=== PATIENT | female | born 1955 | race African-American/Black ===

== ENCOUNTER 2023-06-24 21:40 | Emergency (ER) | payer BC ==
[~2023-06-24] VITALS: Ht 157.5 cm; Wt 66.0 kg
[~2023-06-24 21:40] MED LIST: TOPUD MT
[2023-06-24 21:44] VITALS: O2SAT 100
[2023-06-24] MEDS ORDERED: CYCL10TA21 MT (23:19)
[2023-06-24] MEDS ORDERED: DICL100G58 TP (23:20)
[2023-06-24] MEDS ORDERED: KETOROLAC 30MG/ML VIAL IM ONE (23:30)
[2023-06-24 23:58] VITALS: BP 147/92
[2023-06-25] VITALS: PULSE 83; RESP 18; TEMP 98.3
== END 2023-06-25 | disposition home or self-care (01) ==
LOC: ER 21:40
DX: R51.9 Headache, unspecified (principal); M54.2 Cervicalgia; Z98.890 Other specified postprocedural states
CPT/HCPCS: 99283; 96372; J1885

== ENCOUNTER 2024-01-29 10:52 | Emergency (ER) | payer MEDICARE, MEDICAID ==
[~2024-01-29] VITALS: Ht 167.6 cm; Wt 81.0 kg
[~2024-01-29 10:52] MED LIST changes: +CYCL10TA21 MT; +DICL100G58 TP
[2024-01-29 10:58] VITALS: O2SAT 98
[2024-01-29 11:22] LABS: BASOPHILS % 0.9 % (0.0-2.0); EOSINOPHILS % 3.9 % (0.0-5.0); HEMATOCRIT. 41.7 % (36.0-48.0); HEMOGLOBIN. 13.8 g/dL (12.0-16.0); LYMPHOCYTES % 33.6 % (20.0-50.0); MEAN CORPUSCULAR HEMOGLOBIN 31.4 pg (28.0-32.0); MEAN CORPUSCULAR HGB CONC 33.1 g/dL (31.0-37.0); MEAN CORPUSCULAR VOLUME 94.8 fL (81.0-99.0); MEAN PLATELET VOLUME 7.7 fl (7.4-10.4); MONOCYTES % 7.4 % (2.0-8.0); NEUTROPHILS % 54.2 % (40.0-76.0); PLATELET 225 x1000/uL (130-400); RED CELL DISTRIBUTION WIDTH 12.5 % (11.6-14.6); WHITE BLOOD COUNT 7.2 x1000/uL (4.5-11.0)
[2024-01-29 11:35] LABS: CHLORIDE 105 mEq/L (98-107); POTASSIUM 4.6 mEq/L (3.5-5.1); SODIUM 138 mEq/L (136-145)
[2024-01-29 11:36] LABS: CALCIUM 11.5 mg/dL (8.7-10.4); CARBON DIOXIDE 27 mEq/L (21-32)
[2024-01-29] MEDS: ASPIRIN 81MG TABLET PO ONE (11:38)
[2024-01-29 11:41] LABS: CREATININE 1.2 mg/dL (0.6-1.0); GLUCOSE 111 mg/dL (70-105); UREA NITROGEN BLOOD 17 mg/dL (9-23)
[2024-01-29 11:43] LABS: TROPONIN I HIGH SENSITIVITY 5 ng/L (3.0-34)
[2024-01-29] MEDS: IBUPROFEN 600MG TABLET PO ONE (12:22)
[2024-01-29 14:53] LABS: TROPONIN I HIGH SENSITIVITY 7 ng/L (3.0-34)
[2024-01-29 16:20] LABS: TROPONIN I HIGH SENSITIVITY 6 ng/L (3.0-34)
[2024-01-29 16:34] VITALS: BP 104/68; PULSE 62; RESP 18; TEMP 98.5
== END 2024-01-29 16:35 | disposition home or self-care (01) ==
LOC: ER 10:52
DX: R07.9 Chest pain, unspecified (principal); I10 Essential (primary) hypertension; Z98.890 Other specified postprocedural states
CPT/HCPCS: 36415; 71045; 80048; 83880; 84484; 85025; 93005; 99285

== ENCOUNTER 2024-06-21 08:48 | Emergency (ER) | payer MEDICARE, MEDICAID ==
[~2024-06-21] VITALS: Ht 165.1 cm; Wt 70.0 kg
[2024-06-21 08:50] VITALS: O2SAT 99
[2024-06-21] MEDS ORDERED: ACETAMINOPHEN 325MG TABLET PO ONE (09:15)
[2024-06-21] MEDS: METOCLOPRAMIDE HCL 10MG/2ML VIAL IV ONE (11:13)
[2024-06-21] MEDS: KETOROLAC 15MG/ML VIAL IV ONE (11:13)
[2024-06-21] MEDS ORDERED: IBUP-2029 MT (11:17)
[2024-06-21] MEDS ORDERED: CYCL10TA21 MT (11:17)
[2024-06-21 12:43] VITALS: BP 137/95; PULSE 77; RESP 16; TEMP 36.94740; O2SAT 99
== END 2024-06-21 12:46 | disposition home or self-care (01) ==
LOC: ER 08:56
DX: S00.03XA Contusion of scalp, initial encounter (principal); I11.0 Hypertensive heart disease with heart failure; I50.9 Heart failure, unspecified; Z95.0 Presence of cardiac pacemaker; W01.0XXA Fall on same level from slipping, tripping and stumbling without subsequent striking against object, initial encounter; Y93.89 Activity, other specified; Y92.89 Other specified places as the place of occurrence of the external cause; Y99.8 Other external cause status
CPT/HCPCS: 99285; 70450; 96374; 96375; 72125; J1885; J2765